=== PATIENT | female | born 1975 | race Two or more races ===

== ENCOUNTER 2021-09-28 09:30 | Emergency (ER) | payer OTHER ==
[~2021-09-28] VITALS: Ht 175.3 cm; Wt 83.9 kg
[2021-09-28] MEDS ORDERED: FLUCONAZOLE150 MG PO (13:18)
== END 2021-09-28 13:26 | disposition home or self-care (01) ==
LOC: ER 09:30
DX: N39.0 Urinary tract infection, site not specified (principal); R30.0 Dysuria